=== PATIENT | male | born 1990 | race Caucasian/White ===

== ENCOUNTER 2024-01-24 17:30 | Emergency (ER) | payer OTHER, SELFPAY ==
[2024-01-24 17:32] VITALS: BP 163/94; PULSE 84; RESP 14; TEMP 36.3; O2SAT 96
--- NOTE | 2024-01-24 17:45 | DI.RAD_ITS ---
Exam(s) XR FOREARM LT EXAM: XR FOREARM LT CLINICAL HISTORY: pain post fall mid FA. TECHNIQUE: 2D digital imaging was performed. COMPARISON: CR XR FOREARM RT from 01/24/2024 FINDINGS: 3 views There is no evidence of acute fracture in the radius and ulna. There is a degenerative subarticular cyst in the distal ulna. No significant ulnar variance. Irregula rity of the scaphoid is noted although this may just be projectional. IMPRESSION: No fractures of the left radius and ulna evident. DATA REPOSITORY: RADIATION DOSE DELIVERED:
--- NOTE | 2024-01-24 17:45 | DI.RAD_ITS ---
Exam(s) XR FOREARM RT EXAM: XR FOREARM RT CLINICAL HISTORY: pain mid FA. TECHNIQUE: 2D digital imaging was performed. COMPARISON: No exams were available for comparison FINDINGS: Two views: There is a fracture of the radial head-neck best seen on the lateral view. No obvious fractures of t he ulna. IMPRESSION: Radial head-neck fracture. Recommend dedicated elbow views. DATA REPOSITORY: RADIATION DOSE DELIVERED:
--- NOTE | 2024-01-24 20:40 | ED.GENADUL_ITS ---
Discharge Plan Disposition Patient Disposition: Home Condition: Stable Discharge Details Clinical Impression: Elbow fracture, right, Contusion of elbow, left Primary Care Provider: Unknown,Unknown ED Provider: Sofi Dale Home Meds and New Rx's Prescriptions: Continued methylphenidate HCl [Concerta] 36 mg tablet extended release 24hr 36 mg PO DAILY methylphenidate 8.6 mg tablet,disinteg ER biphase 24h 10 mg PO DAILY PRN Rx Instructions: IR Discharge Instructions Instructions: Elbow Fracture, Adult ED Additional Instructions: Please follow-up with orthopedics Take ibuprofen and Tylenol as needed for pain Keep your sling in place on your right elbow but continue to range her shoulder so it does not become stiff, continue to use your left arm as tolerated Return should you develop new or worsening complaints Stand Alone Forms: Work Release HPI General Date/Time Provider Initiated Documentation: 01/24/24 17:43 . HPI Narrative: 33-year-old male presenting with bilateral upper extremity injuries. States he fell at work landing on his forearms. Palms out. Denies any additional injuries. Has pain in bilateral proximal forearms. Neurovascularly intact. Related Data Home Medications ?Medication ?Instructions ?Recorded ?Confirmed methylphenidate 8.6 mg ER,IR 10 mg PO DAILY PRN 01/24/24 01/24/24 disintegrating 24 hr tablet methylphenidate HCl 36 mg 36 mg PO DAILY 01/24/24 01/24/24 tablet,extended release 24 hr (Concerta) Allergies Allergy/AdvReac Type Severity Reaction Status Date / Time No Known Allergies Allergy Unverified 01/24/24 18:35 General Stated Complaint: Orthopedic CHULA: 3 Exam Narrative Exam Narrative: Pain bilateral proximal forearms, range of motion intact to elbows and wrists. No tenderness to bilateral hands there distal forearm. No visible sign of trauma, neurovascularly intact Course Vital Signs Vital signs: Vital Signs Temperature 36.3 C L 01/24/24 17:32 Pulse 84 01/24/24 17:32 Respiratory Rate 14 01/24/24 17:32 Blood Pressure 163/94 H 01/24/24 17:32 Pulse Oximetry 96 01/24/24 17:32 Temperature 36.3 C L 01/24/24 17:32 Temperature Source Skin 01/24/24 17:32 Pulse 84 01/24/24 17:32 Respiratory Rate 14 01/24/24 17:32 Respiratory Effort Normal, Non-Labored 01/24/24 18:25 Blood Pressure 163/94 H 01/24/24 17:32 Blood Pressure Position Sitting 01/24/24 17:32 Pulse Oximetry 96 01/24/24 17:32 Oxygen Delivery Method Room Air 01/24/24 17:32 Oxygen Flow Rate 0 01/24/24 17:32 Pain Level 6 01/24/24 18:29 Comment no ice or otc meds after injury 01/24/24 17:32 Medical Decision Making 33-year-old male presenting with bilateral upper extremity injury, radial head fracture noted on right. No fracture per radiology interpretation and my review on left. Placed in a sling for his right elbow. Patient can have dedicated elbow x-rays at orthopedics. Work note supplied. Patient will take ibuprofen and Tylenol as needed for pain, no evidence of open fracture remains neurovascularly intact Quality:SDOH Health Related Social Needs: No Data to Display PFSH All Active Problems (Updated 01/24/24 @ 18:50 by DARIEN Poole) Contusion of elbow, left (Acute) Elbow fracture, right (Acute) Social History Smoking/Tobacco Use Status: Never Smoking risk assessment performed?: Yes Alcohol Intake: current Alcohol Intake frequency: a few times a week Alcohol type: other Drug use: Never Substance use type: does not use Housing: apartment Do you feel safe at home: Yes Do you feel safe in your relationship?: Yes
== END 2024-01-24 19:18 | disposition home or self-care (01) ==
LOC: ER 19:11
PROVIDERS: Emergency Provider Physician Assistant
DX: S52.121A Displaced fracture of head of right radius, initial encounter for closed fracture (principal); S50.02XA Contusion of left elbow, initial encounter; W19.XXXA Unspecified fall, initial encounter; Y99.0 Civilian activity done for income or pay
CPT/HCPCS: 99283; 73090